=== PATIENT | female | born 1935 | race Caucasian/White ===

== ENCOUNTER 2020-09-13 17:36 | Emergency (ER) | payer MEDICARE, SELFPAY ==
[2020-09-13 17:51] VITALS: BP 195/83; PULSE 63; RESP 20; TEMP 36.4; O2SAT 100; BMI 20.6
--- NOTE | 2020-09-13 18:28 | CT_ITS ---
EXAMINATION: CT HEAD WITHOUT CONTRAST CT CERVICAL SPINE WITHOUT CONTRAST CLINICAL INFORMATION: Fell and hit head. COMPARISON: None. TECHNIQUE: Imaging was performed from the skull base to vertex without intravenous administration of contrast. In addition, helical noncontrast CT imaging was acquired through the cervical spine and source images were reviewed along with axial reconstructions and sagittal and coronal MPRs. [This CT examination was performed using dose optimization techniques as appropriate, variously including the following: *Automated exposure control *Adjustment of mA and/or kV according to patient size (this includes techniques or standardized protocols for targeted exams where dose is matched to indication/reason for exam; i.e. extremities or head) *Use of iterative reconstruction technique] DLP: 811 mGy-cm FINDINGS: HEAD: Small scalp hematoma in the right parietal-occipital area. There are surgical skin clips over this region. There is no skull fracture. No intracranial mass, hemorrhage, or midline shift is visualized. There is atrophy with prominence of the ventricles and the sulci and hypodensity of the periventricular white matter due to chronic small vessel ischemic disease. There are vascular calcifications of the internal carotid arteries bilaterally. No extra-axial collections are identified. The paranasal sinuses and mastoid air cells are well aerated. CERVICAL SPINE: There is no evidence of acute cervical spine fracture. Vertebral bodies remain normal in height. Cervical vertebrae have normal alignment. There is multilevel degenerative spondylosis of the cervical spine with disc height narrowing and endplate spurs and facet joint arthrosis No pre- or paravertebral soft tissue abnormality is identified. Limited assessment of the lung apices is unremarkable. CT/CT cervical spine wo con IMPRESSION: 1. No acute intracranial pathology. 2. No CT evidence of acute cervical spine fracture or traumatic subluxation
--- NOTE | 2020-09-13 18:41 | ED_ITS ---
HPI - Fall General Chief Complaint: Fall Stated Complaint: Fall Time Seen by Provider: 09/13/20 18:28 Source: patient Mode of arrival: ambulatory Limitations: no limitations History of Present Illness HPI Narrative: 85-year-old female who tells me she was climbing her chair in her kitchen and slipped falling backwards hitting her head on the table. Denies loss of consciousness. Denies headache, dizziness, vision changes, nausea or vomiting. No neck pain. The patient is ambulatory. She has a laceration to th e back of her head. No anticoagulation. MD complaint: fall Onset (ago): hour(s) Fall from: chair Fall witnessed: no Place fall occurred: home Loss of consciousness: none Prolonged down time: no Symptoms prior to fall: none Context: tripped/slipped Location of injury: head Severity: mild Associated symptoms (after fall): denies Related Data Allergies Allergy/AdvReac Type Severity Reaction Status Date / Time No Known Allergies Allergy Unverified 06/10/20 15:33 [No Known Allergies*] Review of Systems Review of Systems: Yes all other systems are reviewed and are negative Constitutional: Constitutional: Reports no additional constitutional complaints, Denies body ache(s), Denies chills, Denies fever(s), Denies headache(s) and Denies weakness Eyes: Eyes: Reports no additional eye complaints and Denies change in vision ENT: Reports system reviewed and no additional complaints, except as documented, Denies dizziness, Denies headache(s), Denies nasal congestion, Denies nasal discharge and Denies neck pain Cardiovascular: Cardiovascular: Reports no additional cardiovascular complai nts, Denies chest pain, Denies leg edema and Denies dyspnea Respiratory: Respiratory: Reports no additional respiratory complaints, Denies cough and Denies dyspnea Gastrointestinal: Gastrointestinal: Reports no additional gastrointestinal complaints, Denies abdominal pain, Denies diarrhea, Denies nausea and Denies vomiting Genitourinary: Genitourinary: Reports no additional female genitourinary complaints and Denies urinary incontinence Musculoskeletal: Musculoskeletal: Reports no additional musculoskeletal complaints, Denies back pain, Denies arthralgias, Denies joint swelling, Denies neck pain, Denies numbness and Denies tingling Integumentary/Breasts: Skin/Breast: Reports system reviewed and no additional complaints, except as docu and Denies rash Comments: skin laceration Neurologic: Reports system reviewed and no additional complaints, except as documented, Denies Abnormal speech present, Denies dizziness, Denies headache(s), Denies numbness, Denies tingling and Denies weakness PMFSH Past Medical History Attestation statement: The following information was validated with the patient. Source: old records reviewed and nursing notes reviewed Social History Social History Smoking Status: Never smoker Use of substances other than those prescribed or required for medical reasons: No Advance Directives: No Advance Directives Information Provided: Yes Physical Exam Vital Signs: Vital Signs: Last Vital Signs Temp 97.6 F 09/13/20 17:51 Pulse 63 09/13/20 19:22 Resp 16 09/13/20 19:22 BP 164/80 H 09/13/20 19:22 Pulse Ox 99 09/13/20 19:22 Body Mass Index 20.6 Const: General: cooperative, healthy appearing, comfortable and no acute distress Orientation/consciousness: patient oriented x3 Limitations: no limitations HENMT: Head: Yes normal to inspection Head images: 1. 1 cm laceration. No bogginess, no crepitus, no hematoma 2. 1 cm laceration with a local hematoma. No bogginess or crepitus Ears: hearing grossly normal bilaterally General nose exam: Normal external nose present Face and sinus: Yes normal facial exam Mouth: Normal oral and palatal mucosa present Throat: Yes posterior oropharynx normal Eyes: General: appearance normal, both eyes and all related structures Pupils: Equal, round and reactive pupils present Neck: Neck: Yes normal visual inspection Chest: Chest palpation & inspection: normal inspection of the chest Resp: Effort & Inspection: normal respiratory effort Auscultation: clear to auscultation bilaterally Cardio: Rate: regular rate Rhythm: regular rhythm Peripheral pulses: Peripheral pulses 2+ throughout GI: Inspection: Yes normal to inspection Palpation (GI): Soft to palpation and nontender Auscultation: normal bowel sounds Back/Spine/Pelvis: Thoracic/Lumbar Spine: thoracic and lumbar spine normal to inspection Skin: General skin exam: no rashes or lesions noted Neuro: General: patient oriented x3, no focal motor deficits and normal sensation to monofilament Cranial nerves: Yes CN's II-XII intact bilaterally, Yes Equal, round and reactive pupils present, Yes Bilaterally intact EOM presen t, Yes Nystagmus not present, Yes Normal facial strength present and Yes Midline tongue present Cognition (Neuro): normal cognition Speech: No Abnormal speech present Gait exam (Neuro): Normal gait present Motor exam (neuro): 5/5 motor strength present throughout Sensory Exam: Normal double simultaneous stimulation for sensation Coordination: tandem gait normal Extrem: General: Yes normal to inspection Course Course Course Narrative: 85-year-old female here with a laceration to the back of her head status post mechanical fall. No complaints. No neuro deficits. See wound repair note. Due to age will check imaging. 2030-imaging unremarkable. Patient feels well. Reviewed head injury care with her at home. Reviewed worrisome signs and symptoms and when to return to the emergency department. Comfortable discharge home. Procedures Laceration Laceration 1: Site: scalp Size (cm): 1 Description: linear Skin layer closed with: other (2 nicolle) Laceration 2: Site: scalp Size (cm): 1 Description: linear Skin layer closed with: other (Two nicolle) Size (cm): other MDM - Fall Medical Records Attestation: I reviewed the patient's medical records. Lab Data Attestation: I reviewed the patient's lab results. Imaging Data Ct head/neck : Attestation: I personally reviewed and interpreted this imaging study as follows: Radiologist's impression: EXAMINATION: CT HEAD WITHOUT CONTRAST CT CERVICAL SPINE WITHOUT CONTRAST CLINICAL INFORMATION: Fell and hit head. COMPARISON: None. TECHNIQUE: Imaging was performed from the skull base to vertex without intravenous administration of contrast. In addition, helical noncontrast CT imaging was acquired through the cervical spine and source images were reviewed along with axial reconstructions and sagittal and coronal MPRs. [This CT examination was performed using dose optimization techniques as appropriate, variously including the following: *Automated exposure control *Adjustment of mA and/or kV according to patient size (this includes techniques or standardized protocols for targeted exams where dose is matched to indication/reason for exam; i.e. extremities or head) *Use of iterative reconstruction technique] DLP: 811 mGy-cm FINDINGS: HEAD: Small scalp hematoma in the right parietal-occipital area. There are surgical skin clips over this region. There is no skull fracture. No intracranial mass, hemorrhage, or midline shift is visualized. There is atrophy with prominence of the ventricles and the sulci and hypodensity of the periventricular white matter due to chronic small vessel ischemic disease. There are vascular calcifications of the internal carotid arteries bilaterally. No extra-axial collections are identified. The paranasal sinuses and mastoid air cells are well aerated. CERVICAL SPINE: There is no evidence of acute cervical spine fracture. Vertebral bodies remain normal in height. Cervical vertebrae have normal alignment. There is multilevel degenerative spondylosis of the cervical spine with disc height narrowing and endplate spurs and facet joint arthrosis No pre- or paravertebral soft tissue abnormality is identified. Limited assessment of the lung apices is unremarkable. CT/CT cervical spine wo con IMPRESSION: 1. No acute intracranial pathology. 2. No CT evidence of acute cervical spine fracture or traumatic subluxation Discharge Plan Discharge Clinical Impression: Laceration Head injury Qualifiers: Encounter type: initial encounter Qualified Code(s): S09.90XA - Unspecified injury of head, initial encounter Patient Disposition: Home, Self-Care Instructions: Head Injury (ED), Head Laceration (ED) Additional Instructions: Nicolle out in 10-14 days Return for severe headache, vomiting, vision changes or altered mental status Referrals: Nola Krishnan NP [Primary Care Provider] - 2 days Interventions: ED Discharge Assessment Last Done: 09/13/20 20:28 Discharge Date/Time: 09/13/20 20:52
[2020-09-13 19:22] VITALS: BP 164/80; PULSE 63; RESP 16; O2SAT 99
[2020-09-13] MEDS: Acetaminophen 325 MG TABLET 650 MG PO (19:36)
== END 2020-09-13 20:52 | disposition home or self-care (01) ==
PROVIDERS: Emergency Provider Emergency Medicine; PCP Nurse Practitioner Family
DX: S01.01XA Laceration without foreign body of scalp, initial encounter (principal); S09.90XA Unspecified injury of head, initial encounter; W07.XXXA Fall from chair, initial encounter; Y93.89 Activity, other specified; Y92.010 Kitchen of single-family (private) house as the place of occurrence of the external cause; Y99.9 Unspecified external cause status
CPT/HCPCS: 12001; 70450; 72125; 99284; 99285

== ENCOUNTER 2023-02-01 19:16 | Emergency (ER) | payer MEDICARE, SELFPAY ==
--- NOTE | ~2023-02-01 | XR_ITS ---
EXAMINATION: XR HIP, RIGHT CLINICAL INFORMATION: Right hip pain. COMPARISON: None available. TECHNIQUE: Two views of the right hip. AP view pelvis FINDINGS: Pelvis: There is mild loss of bilateral hip joint space with bilateral periarticular spurring. No bony erosive changes, fracture or lytic process. The SI joints are symmetrical. No pelvic bone abnormality. There is moderate to large stool in the colon. Right hip: There is no visible acute fracture, dislocation or subluxation. There is mild degenerative disc changes right hip joint with periarticular spurring. The soft tissues are normal. XR/XR hip RT w PEL1V IMPRESSION: 1. Mild degenerative changes bilateral hip joints. No visible acute fracture, dislocation or subluxation seen. No fracture involving the right hip. 2. Moderate to large amount of stool in the colon.
[2023-02-01 19:42] VITALS: PULSE 62; RESP 18; TEMP 36.6; O2SAT 100; BMI 22.3
--- NOTE | 2023-02-01 20:05 | ED_ITS ---
HPI - General Adult General Chief complaint: Extremity Injury, Lower Stated complaint: R leg/foot pain, no injury Time Seen by Provider: 02/01/23 21:38 Source: patient Mode of arrival: ambulatory Limitations: no limitations History of Present Illness HPI narrative: Patient comes to the emergency room complaining of right heel pain. 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 Patient states that they prescribed nabumetone for pain but it is not working. Patient states that the pain medication is not working for her. Patient has an appointment pending with orthopedics. Patient states that since she started having plantar fasciitis, since she cannot put full weight on her right heel, not her hip started hurting. Patient denies any falls or injuries. Related Data Previous Rx's Medication Instructions Recorded tramadol 50 mg tablet 50 mg PO BID PRN pain #8 tabs 02/01/23 Allergies Allergy/AdvReac Type Severity Reaction Status Date / Time No Known Allergies Allergy Unverified 06/10/20 15:33 [No Known Allergies*] Review of Systems Review of Systems: Constitutional : No Weight loss, No Fever, No Chills, No Night Sweats, No Fatigue, No Malaise ENT/Mouth : No Hearing loss, No Ear Pain, No Nasal Congestion, No Sinus Pain, No Hoarseness, No sore throat, No Rhinorrhea, No Swallowing Difficulty Eyes: No Eye Pain, No Swelling, No Redness, No Foreign Body, No Discharge, No Vision Changes Cardiovascular : No Chest Pain, No SOB, No Dyspnea on Exertion, No Orthopnea, No Edema, No Palpitations Respiratory : No Cough, No Sputum, No Wheezing, No Smoke Exposure, No Dyspnea Gastrointestinal : No Nausea, No Vomiting, No Diarrhea, No Constipation, No abdominal Pain, No Hematochezia, No Melena Genitourinary : no irregular bleeding, No Dysuria, No Urinary Frequency, No Hematuria, No Urinary Incontinence, No Urgency, No Flank Pain, No Urinary Flow Changes, No Hesitancy Musculoskeletal : Of right heel pain and bilateral hip pain Skin : No Skin Lesions, No rash Neuro : No Weakness, No Numbness, No Paresthesias, No Loss of Consciousness, No Dizziness, No Headache Psych : No Anxiety/Panic, No Depression, No SI/HI/AH/VH, No Social Issues, Heme/Lymph: No Bruising, No Bleeding,No Lymphadenopathy Endocrine : No Polyuria, No Polydipsia, No Temperature Intolerance [facility] Past Medical History Medical History (Updated 02/01/23 @ 21:54 by Dionna Gamble MD) Plantar fasciitis Social History Social History Advance Directives: No Advance Directives Information Provided: No Physical Exam ED Vital Signs: Vital Signs - 24 hr 02/01/23 19:42 Temperature 98 F Pulse Rate 62 Respiratory Rate 18 Pulse Oximetry 100 Oxygen Delivery Method Room Air BMI result Body Mass Index 22.3 Const Other: Appearance: Alert. Oriented X3. No acute distress. Eyes: Pupils equal, round and reactive to light. ENT: Pharynx normal. Neck: Normal inspection. Neck supple. No lymph nodes noted. No crepitus CVS: Normal heart rate and rhythm. Pulses normal. Normal S1 and S2 Respiratory: No respiratory distress. Breath sounds normal. No Wheezing. No rales Abdomen: Soft and nontender. No rigidity. No distention. Skin: Skin warm and dry. Normal skin color. Normal skin turgor. Extremities: No lower extremity edema. Pain to palpation over heel, also pain is reproduced when patient tries to stand up or when the ankle and the foot is completely flexed. Neuro: Oriented X 3. No motor deficit. No sensory deficit. Moving all extremities. No slurred speech. CN 2 through 12 grossly intact Psych: calm, cooperative, normal affect Course Course Course Narrative: This is an RME: Additional HPI, ROS, PE not included below will be deferred to primary provider.87 year old female with PMH of plantar fascitis presents with right foot/ankle pain radiating to the ankle. Patient reports symptoms are better in the morning and worsen throughout the day. Also reports intermittent R.calf cramps. Patient is doing at-home plantar fascititis exercises with a tennis ball with no relief of symptoms. Additionally, patient has been taking NSAIDs since yesterday with no relief. Patients daughter reports the patient additionally has chronic back, hip and knee pain. Patient reports that she was seen for follow up and now is concerned for bursitis of the hip. Patient is ambulatory. Medical Decision Making Medical Decision Making MDM Narrative: -patient showed me the orthotics that she is using. I discussed with the patient that they are better orthotics, unfortunately they are more expensive. This can be obtained through Orthopedics or Podiatry. -patient requested stronger pain medication, patient given 1 dose of tramadol in the ED and a new prescription. -my interpretation of hip and pelvis x-rays: Degenerative changes, no fracture or dislocation. -for unclear reasons, in triage a D-dimer was ordered. The D-dimer is 293. Age adjusted D-dimer is negative. Patient has no calf pain, no shortness of breath, no tachycardia to indicate DVT or PE. Wells criteria for PE and DVT are both 0 Lab Data Labs: Lab Results 02/01/23 Range/Units 20:26 D-Dimer High Sensitivty 293 NG/ML Radiology Impression Discussion of test interpretation with radiology: I have reviewed the radiologist's reading. Radiologist Impression: FINDINGS: Pelvis: There is mild loss of bilateral hip joint space with bilateral periarticular spurring. No bony erosive changes, fracture or lytic process. The SI joints are symmetrical. No pelvic bone abnormality. There is moderate to large stool in the colon. Right hip: There is no visible acute fracture, dislocation or subluxation. There is mild degenerative disc changes right hip joint with periarticular spurring. The soft tissues are normal.? XR/XR hip RT w PEL1V IMPRESSION: 1.? Mild degenerative changes bilateral hip joints. No visible acute fracture, dislocation or subluxation seen. No fracture involving the right hip. 2.? Moderate to large amount of stool in the colon. ? Discharge Plan Discharge Clinical Impression: Plantar fasciitis Patient Disposition: Home, Self-Care Instructions: Plantar Fasciitis (ED), Plantar Fasciitis Exercises (ED) Additional Instructions: Take your medications as prescribed. If you were prescribed antibiotics today, it is important that you take your medication to their entirety, do not skip any doses, do not finish them early. Follow-up with your primary care provider this week. Return to the emergency department with new or worsening symptoms. In case of emergency call 911 Prescriptions: New tramadol 50 mg tablet 50 mg PO BID PRN (Reason: pain) Qty: 8 0RF
[2023-02-01 20:42] LABS: D Dimer High Sensitivity 293 NG/ML
[2023-02-01] MEDS: traMADoL HCL 50 MG TABLET PO (22:19)
== END 2023-02-01 22:25 | disposition home or self-care (01) ==
PROVIDERS: Physician Assistant; Emergency Provider Emergency Medicine; PCP Nurse Practitioner Family
DX: M72.2 Plantar fascial fibromatosis (principal); M79.671 Pain in right foot; M25.551 Pain in right hip; Z79.899 Other long term (current) drug therapy
CPT/HCPCS: 36415; 73502; 85379; 99283

== ENCOUNTER 2023-03-15 13:37 | Emergency (ER) | payer MEDICARE, SELFPAY ==
[2023-03-15 13:44] VITALS: BP 142/73; PULSE 66; O2SAT 95
[2023-03-15 14:03] VITALS: BP 164/88; PULSE 65; RESP 16; TEMP 36.6; O2SAT 97; BMI 22.4
--- NOTE | 2023-03-15 14:10 | PC.NURSE ---
aox4. calm, cooperative. reports chronic back pain- no injury apparent. some tenderness to lower back area- no upper/mid back tenderness. no loc, no syncope. no resp distress. denies cp. no focal neuro deficits.
[2023-03-15 14:12] VITALS: BP 164/85; PULSE 65; RESP 16; TEMP 36.6; O2SAT 97
--- NOTE | 2023-03-15 14:56 | PC.NURSE ---
aox4. talking w/o distress. reports no changes in symptoms. family visiting.
[2023-03-15 14:57] LABS: Appearance Urine Clear; Color Urine Yellow; Glucose Urine UA Negative (Negative); Leukocyte Esterase Urine Moderate (2+) (Negative); Nitrite Urine Negative (Negative); UMIC TRIGGER UACC YES; Urine Blood Negative (Negative); Urine Ketones Negative (Negative); Urine Protein Negative (Neg-Trace)
--- NOTE | 2023-03-15 15:07 | ED_ITS ---
HPI - Back Pain/Injury General Chief Complaint: Back Pain/Injury Stated Complaint: FALL,-LOC,-THINNERS,-HS Time Seen by Provider: 03/15/23 14:02 Source: patient and family (Daughter) Mode of arrival: EMS History of Present Illness HPI Narrative: 87-year-old female with chronic lower back issues who states that she was attempting to put her socks on when she slid off the edge of the bed and onto her bottom and then was unable to get up until her daughter arrived, she was unable to assist her mom to a standing position and so EMS was called. Patient denies any headaches, she denies any head strike or loss of consciousness related to the fall. She denies any use of blood thinners and did have an appointment today for an epidural injection of cortisone. Related Data Previous Rx's Medication Instructions Recorded tramadol 50 mg tablet 50 mg PO BID PRN pain #8 tabs 02/01/23 Allergies Allergy/AdvReac Type Severity Reaction Status Date / Time No Known Allergies Allergy Verified 03/15/23 14:08 [No Known Allergies*] Review of Systems Review of Systems: Pertinent positives and negatives as stated in HPI PMFSH Past Medical History Source: nursing notes reviewed Medical History Anxiety Arthritis Back pain Plantar fasciitis Spinal stenosis Social History Social History Alcohol intake: never Smoked in Last 30 Days: Yes Use of substances other than those prescribed or required for medical reasons: No Advance Directives: Yes Advance Directives on File: Yes Advance Directives Date on File: 03/15/23 Physical Exam Vital Signs: Vital Signs: Last Vital Signs Temp 98 F 03/15/23 14:12 Pulse 65 03/15/23 14:12 Resp 16 03/15/23 14:12 BP 164/85 H 03/15/23 14:12 Pulse Ox 97 03/15/23 14:12 O2 Del Method Room Air 03/15/23 14:12 BMI result Body Mass Index 22.4 VITAL SIGNS: Reviewed. GENERAL: Well developed, well nourished, in no acute distress. HEAD: Normocephalic/atraumatic EYES: PERRLA, EOMI EARS: Ext canals without abnormality NOSE: Nares patent bilateral OROPHARYNX: no oral lesions noted, posterior pharynx clear NECK: Supple, no adenopathy LUNGS: Normal breath sounds. No adventitious sounds or accessory muscle use. SpO2<97> CARDIOVASCULAR: Regular rate and rhythm without noted murmurs, no JVD or lower extremity edema. ABDOMEN: Soft, non-tender, non-distended with bowel sounds. BACK: No midline vertebral tenderness or step-offs noted. MUSCULOSKELETAL: No tenderness, deformities, or effusions noted on gross inspection. EXTREMITIES: No cyanosis, clubbing or edema. SKIN: Inspection of the skin reveals no rashes NEUROLOGIC: Alert and oriented x 4. Strength and sensation to light touch were grossly intact x 4, plantar and dorsiflexion are 5/5 symmetric, knee flexion/extension 5/5 symmetric, hip flexion 5/5 symmetric. Medical Decision Making Medical Decision Making MDM Narrative: 87-year-old female with significant chronic pain at baseline but no concern for cauda equine at this time. In my opinion this patient simply had a sliding fall onto the floor without concern for physical injury and then does not have the strength to get herself back up off of the floor. I did recommend physical therapy to increase body strength and both the patient and her daughter state that that is in the near future. I also recommended a Life Alert in the event that patient finds herself on the ground again and a lengthy period of time until friends or family come to check on her. I will evaluate with labs and urine. I reviewed all investigations and my interpretation is patient sustained a nontraumatic fall and is otherwise discharged home in stable condition. Differential Diagnosis Please see the discussion above. Lab Data Please see the discussion 03/15/23 15:26 03/15/23 15:26 Labs: Lab Results 03/15/23 03/15/23 Range/Units 14:50 15:26 WBC 8.0 (4.8-10.8) X10*3/uL RBC 4.43 (4.20-5.50) X10*6/uL Hgb 13.4 (12.0-16.0) g/dl Hct 40.4 (37.0-47.0) % MCV 91.2 (80.0-98.0) fL MCH 30.2 (27.0-33.0) pg MCHC 33.2 (31.0-35.0) g/dl RDW 13.1 (11.0-16.0) % Plt Count 225 (160-400) X10*3/uL MPV 10.4 (9.4-12.3) fL Immature Gran % (Auto) 0.2 (0.0-0.4) % Neut % (Auto) 79.1 H (45-73) % Lymph % (Auto) 13.1 L (20-40) % [place] % (Auto) 6.4 (2-11) % Eos % (Auto) 1.0 (0-4) % Baso % (Auto) 0.2 (0-2) % Lymph # (Auto) 1.1 L (1.2-4.9) X10*3/uL [place] # (Auto) 0.5 (0.1-1.2) X10*3/uL Eos # (Auto) 0.1 (0.0-0.4) X10*3/uL Baso # (Auto) 0.0 (0.0-0.2) X10*3/uL Abs Immat Gran (auto) 0.02 (0.00-0.03) X10*3/uL Absolute Neuts (auto) 6.3 (2.0-8.3) x10*3/uL Absolute Nucleated RBC 0.000 (0.0-0.012) X10*3/uL Nucleated RBC % (auto) 0.0 (0.0-0.2) /100WBC Urine Color Yellow Urine Appearance Clear Urine pH 8.0 (5.0-9.0) Ur Specific [place] 1.010 (1.005-1.025) Urine Protein Negative (Neg-Trace) mg/dL Urine Glucose (UA) Negative (Negative) mg/dL Urine Ketones Negative (Negative) mg/dL Urine Blood Negative (Negative) Urine Nitrite Negative (Negative) Ur Leukocyte Esterase Moderate (2+) H (Negative) Urine RBC 0-2 (0-2) /HPF Urine WBC 0-5 (0-5) /HPF Ur Squamous Epith Cells 0-2 (0-2) /HPF Urine Bacteria None Seen (None Seen) Hyaline Casts 0-2 (0-2) /LPF Discharge Plan Discharge Clinical Impression: Physical deconditioning, Fall Patient Disposition: Home, Self-Care Instructions: Fall Prevention for Older Adults (ED) Additional Instructions: 1. I recommend that patient be involved in physical therapy at your earliest convenience. 2. Please consider Life Alert for additional safety precautions. 3. Follow-up with primary care provider. Return to the ER for any worsening symptoms. Prescriptions: No Action tramadol 50 mg tablet 50 mg PO BID PRN (Reason: pain) Qty: 8 0RF Referrals: Kim Banks [employer] [Primary Care Provider] -
[2023-03-15 15:13] LABS: Bacteria Urine None Seen (None Seen); Hyaline Casts Urine 0-2 /LPF (0-2); RBC Urine 0-2 /HPF (0-2); Squamous Epithelial Cell Urine 0-2 /HPF (0-2); WBC Urine 0-5 /HPF (0-5)
[2023-03-15 15:32] LABS: MANUAL DIFF FLAG NO
[2023-03-15 15:40] LABS: Basophils Percent Auto 0.2 % (0-2); Eosinophils Absolute Auto 0.1 X10*3/uL (0.0-0.4); Hematocrit 40.4 % (37.0-47.0); Hemoglobin 13.4 g/dl (12.0-16.0); Imm Gran Abs Auto 0.02 X10*3/uL (0.00-0.03); Imm Gran Pct Auto 0.2 % (0.0-0.4); Lymphocytes Absolute Auto 1.1 X10*3/uL (1.2-4.9); Lymphocytes Percent Auto 13.1 % (20-40); Mean Corpuscular HGB Conc 33.2 g/dl (31.0-35.0); Mean Corpuscular Hemoglobin 30.2 pg (27.0-33.0); Mean Corpuscular Volume 91.2 fL (80.0-98.0); Mean Platelet Volume 10.4 fL (9.4-12.3); Monocytes Absolute Auto 0.5 X10*3/uL (0.1-1.2); Monocytes Percent Auto 6.4 % (2-11); Neutrophils Absolute Auto 6.3 x10*3/uL (2.0-8.3); Neutrophils Percent Auto 79.1 % (45-73); Platelet Count 225 X10*3/uL (160-400); Red Blood Count 4.43 X10*6/uL (4.20-5.50); Red Cell Distribution Width 13.1 % (11.0-16.0)
[2023-03-15 16:02] LABS: Alanine Aminotransferase 19 U/L (0-31); Albumin Level 4.4 g/dL (3.5-5.0); Alkaline Phosphatase 64 U/L (39-117); Anion Gap 13 (12-20); Aspartate Amino Transferase 21 U/L (5-31); Bilirubin Total 0.6 mg/dL (0.0-1.0); Blood Urea Nitrogen 19 mg/dL (9-16); Calcium 9.7 mg/dL (8.4-10.2); Carbon Dioxide 31 mmol/L (22-29); Chloride 101 mmol/L (96-108); Creatinine Clr Calc Pharmacy 40.5; Estimated Glomerular Filt Rate > 60; Glucose Random 101 mg/dL (60-115); Potassium 4.5 mmol/L (3.3-5.1); Sodium 140 mmol/L (135-145); Total Protein 7.3 g/dL (6.5-8.0)
== END 2023-03-15 16:34 | disposition home or self-care (01) ==
PROVIDERS: Emergency Provider Student in an Organized Health Care Education/Training Program; PCP Nurse Practitioner Family
DX: Z04.3 Encounter for examination and observation following other accident (principal); R53.81 Other malaise; Z79.899 Other long term (current) drug therapy
CPT/HCPCS: 36415; 80053; 81001; 85025; 99283; 99284

== ENCOUNTER 2023-04-12 16:09 | Emergency (ER) | payer MEDICARE, SELFPAY ==
--- NOTE | ~2023-04-12 | CT_ITS ---
EXAMINATION: CT brain and CT cervical spine without IV contrast. CLINICAL INDICATION: Head trauma. COMPARISON: CT brain 09/13/2020. TECHNIQUE: 5 mm thin axial and reformatted 2 mm thin sagittal and coronal images of brain were obtained without contrast. Subsequently axial 3 mm thin and reformatted 2 mm thin sagittal and coronal images of cervical spine were obtained. DLP 942. FINDINGS: BRAIN: There is no acute intra-axial extra-axial bleed, masses or midline shift. There is no acute infarction in evolution. There is no edema. The lateral ventricles are symmetrical in size and configuration but moderately enlarged. The jones to white matter differentiation is maintained normal. There is mild periventricular hypodensity in both cerebral hemispheres in the posterior parietal region but no mass effect seen. No abnormality seen in the posterior fossa except for atherosclerotic calcification of bilateral vertebral arteries. CERVICAL SPINE: There is mild straightening of cervical lordosis. The vertebral heights and alignment is normal. There is loss of C3-C4, C4-C5 and C5-C6 disc heights with mild ventral and posterior spondylosis. The craniovertebral junction is normal. There is a right C2-C3, C3-C4 and bilateral C4-C5 and C5-C6 facet joint arthropathy slightly worse on the right at the C2-C3 and C3-C4 disc levels. No visible acute fracture, dislocation or subluxation seen. The prevertebral and paravertebral soft tissues are normal. The central tracheal airway is widely patent. The lung apices are clear. CT/CT cervical spine wo IV con IMPRESSION: 1. No acute intracranial process seen. 2. Age-related cerebral volume loss with chronic small vessel ischemic changes in both cerebral hemispheres.
--- NOTE | ~2023-04-12 | CT_ITS ---
EXAMINATION: CT brain and CT cervical spine without IV contrast. CLINICAL INDICATION: Head trauma. COMPARISON: CT brain 09/13/2020. TECHNIQUE: 5 mm thin axial and reformatted 2 mm thin sagittal and coronal images of brain were obtained without contrast. Subsequently axial 3 mm thin and reformatted 2 mm thin sagittal and coronal images of cervical spine were obtained. DLP 942. FINDINGS: BRAIN: There is no acute intra-axial extra-axial bleed, masses or midline shift. There is no acute infarction in evolution. There is no edema. The lateral ventricles are symmetrical in size and configuration but moderately enlarged. The jones to white matter differentiation is maintained normal. There is mild periventricular hypodensity in both cerebral hemispheres in the posterior parietal region but no mass effect seen. No abnormality seen in the posterior fossa except for atherosclerotic calcification of bilateral vertebral arteries. CERVICAL SPINE: There is mild straightening of cervical lordosis. The vertebral heights and alignment is normal. There is loss of C3-C4, C4-C5 and C5-C6 disc heights with mild ventral and posterior spondylosis. The craniovertebral junction is normal. There is a right C2-C3, C3-C4 and bilateral C4-C5 and C5-C6 facet joint arthropathy slightly worse on the right at the C2-C3 and C3-C4 disc levels. No visible acute fracture, dislocation or subluxation seen. The prevertebral and paravertebral soft tissues are normal. The central tracheal airway is widely patent. The lung apices are clear. CT/CT head/brain wo IV con IMPRESSION: 1. No acute intracranial process seen. 2. Age-related cerebral volume loss with chronic small vessel ischemic changes in both cerebral hemispheres.
[2023-04-12 16:13] VITALS: BP 180/84; PULSE 70; RESP 18; TEMP 36.3; O2SAT 95; BMI 20.6
--- NOTE | 2023-04-12 16:16 | ED.GENADULT ---
HPI - General Adult General Chief complaint: Fall Stated complaint: Fall/Hit head/Laceration back of head Time Seen by Provider: 04/12/23 16:57 Source: patient and family Mode of arrival: ambulatory Limitations: no limitations History of Present Illness HPI narrative: 88-year-old female came in for evaluation after a mechanical fall. Patient watering the plan then she talk 2 steps backward were she tripped on the stairs falling backward patient try to ease the fall by using her elbow, falling backward hitting her back of her head causing laceration to the right occipital area, no LOC, no blurry patient, no headache, no nausea, no vomiting. Patient otherwise complaining of no other symptoms. Related Data Previous Rx's Medication Instructions Recorded tramadol 50 mg tablet 50 mg PO BID PRN pain #8 tabs 02/01/23 Allergies Allergy/AdvReac Type Severity Reaction Status Date / Time No Known Allergies Allergy Verified 04/12/23 16:13 [No Known Allergies*] Review of Systems Review of Systems: All other systems are reviewed and are negative Constitutional: Reports as per HPI and Reports no additional constitutional complaints Eyes: Reports as per HPI and Reports no additional eye complaints Reports system reviewed and no additional complaints, except as documented Cardiovascular: Reports as per HPI and Reports no additional cardiovascular complaints Respiratory: Reports as per HPI and Reports no additional respiratory complaints Gastrointestinal: Reports as per HPI and Reports no additional gastrointestinal complaints Genitourinary: Reports no additional female genitourinary complaints Musculoskeletal: Reports no additional musculoskeletal complaints Skin/Breast: Reports system reviewed and no additional complaints, except as docu Psychiatric: Reports no additional psychiatric complaints Endocrine: Reports no additional endocrine complaints Hematologic/Lymphatic: Reports no additional hematologic/lymphatic complaints Allergic/Immunologic: Reports no additional allergic/immunologic complaints Reports system reviewed and no additional complaints, except as documented and Reports Abnormal speech present [facility] Past Medical History Medical History Anxiety Arthritis Back pain Plantar fasciitis Spinal stenosis Social History Social History Alcohol intake: never Advance Directives Date on File: 03/15/23 Physical Exam ED Vital Signs: Vital Signs - 24 hr 04/12/23 16:13 04/12/23 16:46 Temperature 97.3 F 98.8 F Pulse Rate 70 66 Respiratory Rate 18 14 Blood Pressure 180/84 H 184/87 H Pulse Oximetry 95 96 Oxygen Delivery Method Room Air Room Air BMI result Body Mass Index 20.6 Vital signs have been reviewed as appeared to be correct. Blood pressure normal. Heart rate normal. Respiration rate normal. Temperature normal. Oxygen saturation normal. Appearance: Alert. Oriented X3. No acute distress. Head: 4 cm laceration to the right occipital area with no active bleeding, galea is intact. Eyes: PERRLA. EOMI. Conjunctiva and sclera normal. Eyelids normal. ENT: TM's Normal. Pharynx normal. Uvula midline. Moist mucous membranes. No trismus noted. No drooling noted. No muffled voice noted. Neck: Normal inspection. Neck supple. FROM. No adenopathy. Thyroid Normal. No meningeal signs. No neck mass noted. CVS: Normal heart rate and rhythm. Heart sound normal. No murmurs noted. Pulses normal throughout. Respiratory: No respiratory distress. Painless inspiration. Breath sounds normal. No wheezes/rales/rhonchi noted. Chest nontender. No accessory muscle usage noted or decreased air movement noted. Abdomen: Soft and nontender. Bowel sounds normal in all 4 quadrants. No distention noted. No organomegaly noted. No visible injury noted. Back: No CVA tenderness. Full range of motion noted. Skin: Skin warm and dry. Normal skin color. Normal skin turgor. No rashes/lesions/lacerations noted. Extremities: No lower extremity edema. Extremities exhibit normal range of motion. Extremities nontender. Neuro: Oriented X 3. Cranial nerve exam: II-XII are grossly intact No motor deficit. No sensory deficit. Reflexes normal. Course Course Course Narrative: This is an RME: Additional HPI, ROS, PE not included below will be deferred to primary provider. This is a 18-hovf-sub-female, with a history of anxiety and depression, presenting to the emergency department after mechanical fall which occurred 30 minutes prior to arrival. Pt had 4cm partial thickness laceration noted to her right occiput. Neurologically intact, no neurologic deficits on exam. VSS. Plan: CT neck and CT head ordered. Reevaluation(s) Reevaluation #1: Right occipital scalp laceration after mechanical fall normal neuro exam GCS score of 15, with unremarkable head CT. S/p stables patient will be discharged and return in 7-10 days for staple removal. Time: 17:30 Medical Decision Making Differential Diagnosis Differential Diagnoses: The differential diagnosis associated with the presentation includes (Mechanical fall, intracranial hematoma, laceration repair, extremity fracture.) Admission/Observation Consideration of admission/observation: Escalation of care including admission/observation considered Lab Data MDM Lab Attestation statement: I reviewed the patient's lab results. Labs: Lab Results 04/12/23 Range/Units 16:44 POC Glucose 93 (60-115) mg/dL Independent Interpretation I performed an independent interpretation of an: CT Scan (Head/cervical spine: No acute intracranial pathology, no C-spine fracture) Radiology Impression Discussion of test interpretation with radiology: I have reviewed the radiologist's reading. Discharge Plan Discharge Clinical Impression: Laceration of scalp, Accident due to mechanical fall without injury, Closed head injury Patient Disposition: Home, Self-Care Instructions: Head Injury (ED) Additional Instructions: Come back in 7-10 days for nicolle removal. Prescriptions: No Action tramadol 50 mg tablet 50 mg PO BID PRN (Reason: pain) Qty: 8 0RF
[2023-04-12 16:46] VITALS: BP 184/87; PULSE 66; RESP 14; TEMP 37.1; O2SAT 96
[2023-04-12 16:52] LABS: Glucose, Whole Blood 93 mg/dL (60-115)
[2023-04-12 17:10] VITALS: BP 179/92; PULSE 66; RESP 14; O2SAT 95
--- NOTE | 2023-04-12 17:16 | PC.NURSE ---
pt axox4, VSS, bp elevated 179/92; provider aware, respirations even and unlabored, NSR on monitor 65 bpm, sats 97% RA, skin wpd, neuros intact. c/o fall 1445 today, was watering avila took step back and fell down 3 steps, hitting head on last step. witnessed by neighbors denies LOC. pt denies sx prior to fall; denies AKHTAR, change in vision, sob, cp, n/v. laceration to scalp, small abrasion on L. elbow. son in law and daughter at bedside. md to bedside. awaiting CT scan. call ellison within reach.
--- NOTE | 2023-04-12 18:21 | PC.NURSE ---
[address] Beaulieu, pt awaiting CT scan results.
[2023-04-12 18:57] VITALS: BP 171/81; PULSE 66; RESP 15; TEMP 37; O2SAT 95
[2023-04-12 19:35] VITALS: BP 171/84; PULSE 66; TEMP 36.4; O2SAT 97
== END 2023-04-12 20:03 | disposition home or self-care (01) ==
PROVIDERS: Emergency Provider Emergency Medicine
DX: S01.01XA Laceration without foreign body of scalp, initial encounter (principal); W10.8XXA Fall (on) (from) other stairs and steps, initial encounter; Y93.H2 Activity, gardening and landscaping; Y92.017 Garden or yard in single-family (private) house as the place of occurrence of the external cause; Y99.9 Unspecified external cause status
CPT/HCPCS: 12002; 70450; 72125; 82947; 99284

== ENCOUNTER 2023-04-19 13:25 | Emergency (ER) | payer MEDICARE, SELFPAY ==
[2023-04-19 13:29] VITALS: BP 132/71; PULSE 63; RESP 18; TEMP 36.3; O2SAT 96; BMI 19.1
--- NOTE | 2023-04-19 13:32 | ED.GENADULT ---
HPI - General Adult General Chief complaint: Skin/Abscess/Foreign Body Stated complaint: staple removal Time Seen by Provider: 04/19/23 15:27 Source: patient and old records reviewed Mode of arrival: ambulatory Limitations: no limitations History of Present Illness HPI narrative: 88 yo female presents for staple removal after she was eeen here last week for a fall w/ head strike requiring 9 nicolle to a laceration on the back of her head. Patient has no complaints. No bleeding or drainage. No headaches MD complaint: staple removal, wound evaluation Location: head Radiation: non-radiation Relieving factors: none Exacerbating factors: none Associated symptoms: denies other symptoms Treatments prior to arrival: none Related Data Previous Rx's Medication Instructions Recorded tramadol 50 mg tablet 50 mg PO BID PRN pain #8 tabs 02/01/23 Allergies Allergy/AdvReac Type Severity Reaction Status Date / Time No Known Allergies Allergy Verified 04/12/23 16:13 [No Known Allergies*] Review of Systems Review of Systems: Yes all other systems are reviewed and are negative PMFSH Past Medical History Medical History Anxiety Arthritis Back pain Plantar fasciitis Spinal stenosis Social History Social History Alcohol intake: never Advance Directives: Yes Advance Directives on File: Yes Advance Directives Date on File: 03/15/23 Physical Exam ED Vital Signs: Vital Signs - 24 hr 04/19/23 13:29 Temperature 97.3 F Pulse Rate 63 Respiratory Rate 18 Blood Pressure 132/71 Pulse Oximetry 96 Oxygen Delivery Method Room Air BMI result Body Mass Index 19.1 Appearance: Alert. Oriented X3. No acute distress. HEENT: posterior scalp with a 3.5 cm wound w/ crusting and [address], no bleeding, nontender, no drainage Respiratory: No respiratory distress. Skin: Skin warm and dry. Normal skin color. Normal skin turgor. No rashes. Extremities: normal inspection x4 Neuro: Oriented X 3.grossly normal Course Course Course Narrative: This is an RME: Additional HPI, ROS, PE not included below will be deferred to primary provider. 88-year-old female presenting to the emergency department for staple removal. No fevers, chills. Tolerated nicolle well without complications. VSS Medical Decision Making Medical Decision Making MDM Narrative: 88 yo female presenting for staple removal. 9 nicolle placed 1 week ago. wound is healing appropriately 9 nicolle removed without issue. tolerated well wound care discussed. stable for d/c home Differential Diagnosis Differential Diagnoses: The differential diagnosis associated with the presentation includes appropriate wound healing of the scalp, delayed wound healing, wound infection External Record Review External record reviewed: Outpatient record, Prior outpatient labs and Prior outpatient radiology Critical Care Time Critical Care Time Critical Care Time: No Discharge Plan Discharge Clinical Impression: Encounter for staple removal Patient Disposition: Home, Self-Care Instructions: Stitches Removal (ED) Additional Instructions: gently wash your scalp with warm soap and water if you have mild bleeding, apply pressure to the area If you develop new or worsening symptoms call 911 or come back to the ER for further evaluation. Prescriptions: No Action tramadol 50 mg tablet 50 mg PO BID PRN (Reason: pain) Qty: 8 0RF
== END 2023-04-19 16:10 | disposition home or self-care (01) ==
PROVIDERS: Emergency Provider Emergency Medicine Emergency Medical Services; PCP Nurse Practitioner Family
DX: Z48.02 Encounter for removal of sutures (principal)
CPT/HCPCS: 99284